=== PATIENT | male | born 1965 | race Caucasian/White ===

== ENCOUNTER 2021-12-20 16:13 | Inpatient (IN) | payer OTHER ==
[~2021-12-20] VITALS: Ht 175.3 cm; Wt 76.9 kg
[2021-12-20] MEDS ORDERED: EMPA10TA3 PO (16:51)
[2021-12-20] MEDS ORDERED: CALC500T37 PO (16:51)
[2021-12-20] MEDS ORDERED: ASPI-1 PO (16:51)
[2021-12-20] MEDS ORDERED: GLIP5TAB12 PO (16:51)
[2021-12-20] MEDS ORDERED: SACU1TAB PO (16:51)
[2021-12-20] MEDS ORDERED: OMEP20 PO (16:51)
[2021-12-20] MEDS ORDERED: METO50 PO (16:51)
[2021-12-20] MEDS ORDERED: CHLO10TA19 PO (16:51)
[2021-12-20] MEDS ORDERED: AMLO-257 PO (16:51)
[2021-12-20] MEDS ORDERED: ALLO-97 PO (16:51)
[2021-12-20] MEDS ORDERED: CLOP75TA60 PO (16:51)
[2021-12-20] MEDS ORDERED: ATOR40TA28 PO (16:51)
[2021-12-20] MEDS ORDERED: OMEG100015 PO (16:51)
[2021-12-20 17:23] LABS: BASOPHILS % (AUTO) 1.1 % (0.0-2.0); EOSINOPHILS % (AUTO) 3.3 % (1.0-6.0); HEMOGLOBIN 10.9 g/dL (13.5-17.5); LYMPHOCYTES # (AUTO) 2.3 K/uL (1.0-4.8); MEAN CORPUSCULAR HEMOGLOBIN 30.1 pg (26.0-34.0); MEAN CORPUSCULAR HGB CONC 33.9 G/dL (31.0-37.0); MEAN CORPUSCULAR VOLUME 89 fL (80-100); MONOCYTES # (AUTO) 0.7 K/uL (0.1-1.0); MONOCYTES % (AUTO) 9.9 % (2.0-9.0); NEUTROPHILS # (AUTO) 3.8 K/uL (1.8-7.7); NEUTROPHILS % (AUTO) 52.7 % (40.0-70.0); PLATELET COUNT (AUTO) 197 K/uL (150-450); RED BLOOD CELL COUNT(AUTO) 3.61 MIL/uL (4.50-5.90); RED CELL DISTRIBUTION WIDTH 14.1 % (11.5-14.5)
[2021-12-20 17:33] LABS: CALCIUM, TOTAL 7.8 mg/dL (8.8-10.5); CREATININE 5.7 mg/dL (0.60-1.30); POTASSIUM 5.7 mmol/L (3.5-5.1)
[2021-12-20 17:36] LABS: PROTHROMBIN TIME 10.3 SEC (9.4-11.6)
[2021-12-20 17:45] LABS: APPEARANCE,URINE CLEAR (CLEAR); BILIRUBIN,URINE NEGATIVE (NEGATIVE); GLUCOSE, URINE (UA) >=1000 mg/dL (NEGATIVE); KETONES,URINE NEGATIVE (NEGATIVE); LEUKOCYTE ESTERASE ,URINE NEGATIVE (NEGATIVE); NITRATE,URINE NEGATIVE (NEGATIVE); OCCULT BLOOD,URINE SMALL (NEGATIVE); PH,URINE 5.5 (5.0-8.0); PROTEIN,URINE 300-600,SEE CONFIRM mg/dL (NEGATIVE); UROBILINOGEN,URINE <=1.0 mg/dL (<=1.0)
[2021-12-20] MEDS ORDERED: SODIUM ZIRCONIUM CYCLOSILICATE 5 GM POWDER PACKET PO ONE (18:00)
[2021-12-20] MEDS ORDERED: CALCIUM GLUCONATE 1,000 MG in DEXTROSE 5%-WATER 50 ML IV ONE (18:00)
[2021-12-20 18:02] LABS: ALBUMIN 3.6 g/dL (3.4-5.0); BILIRUBIN,TOTAL 0.3 mg/dL (0.1-1.0); TOTAL PROTEIN, SERUM 7.8 g/dL (6.4-8.2)
[2021-12-20] MEDS ORDERED: DEXTROSE 50%-WATER 25 GM/50 ML SYRINGE IVP ONE (18:15)
[2021-12-20] MEDS ORDERED: INSULIN REGULAR, HUMAN 100 UNITS/ML IVP ONE (18:15)
[2021-12-20] MEDS ORDERED: FUROSEMIDE 40 MG/4 ML VIAL IVP ONE (18:15)
[2021-12-20 18:25] LABS: COVID AG,FIA SOURCE NASAL SWAB
[2021-12-20 18:37] LABS: BACTERIA,URINE None Seen /HPF (None Seen); RBC,URINE 0-2 /HPF (0-2); SULFOSALICYLIC ACID,URINE 2+ (Negative); WBC,URINE None Seen /HPF (0-5)
[2021-12-20 19:06] LABS: GLUCOMETER DEV NAME(LOC) ERT.5; GLUCOSE,POINT OF CARE 244 MG/DL (70-110)
[2021-12-20] MEDS ORDERED: ACETAMINOPHEN 325 MG TABLET PO PRN (20:00)
[2021-12-20] MEDS ORDERED: ONDANSETRON HCL 4 MG/2 ML VIAL IVP PRN (20:00)
[2021-12-20 22:45] LABS: CREATININE,URINE RANDOM 89.2 mg/dL (30.0-125.0)
[2021-12-20] MEDS ORDERED: DEXTROSE 50%-WATER 25 GM/50 ML SYRINGE IVP PRN (22:45)
[2021-12-20 23:26] LABS: CALCIUM, TOTAL 8.5 mg/dL (8.8-10.5); CREATININE 5.73 mg/dL (0.60-1.30); POTASSIUM 5.1 mmol/L (3.5-5.1)
[2021-12-20] MEDS: HEPARIN SODIUM,PORCINE 5,000 UNITS/ML VIAL SQ SCH (23:37)
[2021-12-21 02:52] VITALS: BP 108/74
[2021-12-21 09:00] VITALS: BP 135/79
[2021-12-21] MEDS ORDERED: OMEPRAZOLE 20 MG CAPSULE PO SCH (09:00)
[2021-12-21] MEDS: CALCIUM CARBONATE 500 MG CHEWABLE TABLET PO SCH ×3 (09:04→21:15)
[2021-12-21] MEDS: ALLOPURINOL 100 MG TABLET PO SCH (09:05)
[2021-12-21] MEDS: CLOPIDOGREL BISULFATE 75 MG TABLET PO SCH (09:05)
[2021-12-21] MEDS: AmLODIPine BESYLATE 5 MG TABLET PO SCH (09:05)
[2021-12-21] MEDS: METOPROLOL TARTRATE 50 MG TABLET PO SCH (09:05)
[2021-12-21] MEDS: ASPIRIN 325 MG TABLET PO SCH (09:05)
[2021-12-21] MEDS: ChlorproMAZINE HCL 10 MG TABLET PO SCH ×2 (09:06→21:15)
[2021-12-21] MEDS: ATORVASTATIN CALCIUM 40 MG TABLET PO SCH (09:06)
[2021-12-21] MEDS: HEPARIN SODIUM,PORCINE 5,000 UNITS/ML VIAL SQ SCH ×2 (09:06→16:24)
[2021-12-21] MEDS: PANTOPRAZOLE SODIUM 40 MG DR TABLET PO SCH (09:06)
[2021-12-21 11:32] LABS: GLUCOMETER DEV NAME(LOC) 5N.3; GLUCOSE,POINT OF CARE 198 MG/DL (70-110)
[2021-12-21] MEDS: INSULIN LISPRO 100 UNITS/ML SQ PRN ×3 (11:53→21:17)
[2021-12-21 12:30] VITALS: BP 134/70
[2021-12-21 13:22] LABS: AMPHET/METH SCREEN,URINE NEGATIVE (NEGATIVE); BARBITURATE SCREEN, URINE NEGATIVE (NEGATIVE); BENZODIAZEPINES SCREEN,URINE NEGATIVE (NEGATIVE); CANNABINOID SCREEN,URINE NEGATIVE (NEGATIVE); COCAINE SCREEN,URINE NEGATIVE (NEGATIVE); METHADONE SCREEN, URINE NEGATIVE (NEGATIVE); OPIATE SCREEN,URINE NEGATIVE (NEGATIVE); PHENCYCLIDINE SCREEN,URINE NEGATIVE (NEGATIVE); PROTEIN,URINE RANDOM 158 mg/dL (0-11.9)
[2021-12-21 16:20] VITALS: BP 129/70
[2021-12-21] MEDS ORDERED: EPOETIN ALFA 10,000 UNITS/ML VIAL SQ SCH (16:40)
[2021-12-21] MEDS: FERROUS SULFATE 325 MG EC TABLET PO SCH (18:01)
[2021-12-21 19:30] VITALS: BP 127/79
[2021-12-21] MEDS ORDERED: INSULIN GLARGINE,HUM.REC.ANLOG 100 UNITS/ML SQ SCH (21:00)
[2021-12-21] MEDS: SODIUM BICARBONATE 650 MG TABLET PO SCH (21:15)
[2021-12-21 23:45] VITALS: BP 123/76
[2021-12-22] MEDS: HEPARIN SODIUM,PORCINE 5,000 UNITS/ML VIAL SQ SCH ×2 (00:42→09:22)
[2021-12-22 04:20] VITALS: BP 133/80
[2021-12-22] MEDS: INSULIN LISPRO 100 UNITS/ML SQ PRN ×2 (05:40→12:00)
[2021-12-22 06:11] LABS: GLUCOMETER DEV NAME(LOC) 5N.1C; GLUCOSE,POINT OF CARE 208 MG/DL (70-110)
[2021-12-22 06:16] LABS: GLUCOMETER DEV NAME(LOC) 5N.1C; GLUCOSE,POINT OF CARE 151 MG/DL (70-110)
[2021-12-22 07:06] LABS: GLUCOMETER DEV NAME(LOC) 5N.3; GLUCOSE,POINT OF CARE 162 MG/DL (70-110)
[2021-12-22 07:06] LABS: GLUCOMETER DEV NAME(LOC) 5N.3; GLUCOSE,POINT OF CARE 229 MG/DL (70-110)
[2021-12-22 07:48] LABS: BASOPHILS % (AUTO) 0.7 % (0.0-2.0); EOSINOPHILS % (AUTO) 2.9 % (1.0-6.0); HEMATOCRIT 32.6 % (41-53); HEMOGLOBIN 10.9 g/dL (13.5-17.5); LYMPHOCYTES % (AUTO) 31.8 % (22.0-44.0); MEAN CORPUSCULAR HEMOGLOBIN 29.7 pg (26.0-34.0); MEAN CORPUSCULAR HGB CONC 33.5 G/dL (31.0-37.0); MEAN CORPUSCULAR VOLUME 89 fL (80-100); MONOCYTES # (AUTO) 0.6 K/uL (0.1-1.0); MONOCYTES % (AUTO) 9.8 % (2.0-9.0); NEUTROPHILS # (AUTO) 3.5 K/uL (1.8-7.7); NEUTROPHILS % (AUTO) 54.8 % (40.0-70.0); PLATELET COUNT (AUTO) 173 K/uL (150-450); RED BLOOD CELL COUNT(AUTO) 3.69 MIL/uL (4.50-5.90); RED CELL DISTRIBUTION WIDTH 14.2 % (11.5-14.5)
[2021-12-22 07:58] LABS: ALBUMIN 3.3 g/dL (3.4-5.0); BILIRUBIN,TOTAL 0.2 mg/dL (0.1-1.0); CALCIUM, TOTAL 8.2 mg/dL (8.8-10.5); CREATININE 5.57 mg/dL (0.60-1.30); PHOSPHORUS 5.8 mg/dL (2.5-4.9); POTASSIUM 4.8 mmol/L (3.5-5.1); TOTAL PROTEIN, SERUM 7.2 g/dL (6.4-8.2)
[2021-12-22 08:00] VITALS: BP 115/86
[2021-12-22] MEDS ORDERED: SODIUM ZIRCONIUM CYCLOSILICATE 5 GM POWDER PACKET PO SCH (09:00)
[2021-12-22] MEDS: ChlorproMAZINE HCL 10 MG TABLET PO SCH (09:21)
[2021-12-22] MEDS: METOPROLOL TARTRATE 50 MG TABLET PO SCH (09:21)
[2021-12-22] MEDS: ASPIRIN 325 MG TABLET PO SCH (09:21)
[2021-12-22] MEDS: ATORVASTATIN CALCIUM 40 MG TABLET PO SCH (09:21)
[2021-12-22] MEDS: CLOPIDOGREL BISULFATE 75 MG TABLET PO SCH (09:21)
[2021-12-22] MEDS: FERROUS SULFATE 325 MG EC TABLET PO SCH (09:21)
[2021-12-22] MEDS: CALCIUM CARBONATE 500 MG CHEWABLE TABLET PO SCH (09:21)
[2021-12-22] MEDS: AmLODIPine BESYLATE 5 MG TABLET PO SCH (09:22)
[2021-12-22] MEDS: PANTOPRAZOLE SODIUM 40 MG DR TABLET PO SCH (09:22)
[2021-12-22] MEDS: SODIUM BICARBONATE 650 MG TABLET PO SCH (09:22)
[2021-12-22] MEDS: ALLOPURINOL 100 MG TABLET PO SCH (09:23)
[2021-12-22 10:56] VITALS: BP 122/75
[2021-12-22] MEDS ORDERED: CALCIUM ACETATE 667 MG CAPSULE PO SCH (12:00)
[2021-12-22] MEDS ORDERED: SODIUM BICARBONATE 650 MG TABLET PO SCH (13:00)
[2021-12-22] MEDS ORDERED: PHOSLOC PO (15:09)
[2021-12-22] MEDS ORDERED: EPOE10I SQ (15:11)
[2021-12-22] MEDS ORDERED: FERR-82 PO (15:11)
[2021-12-22] MEDS ORDERED: SODI650T33 PO (15:12)
[2021-12-22 20:41] LABS: GLUCOMETER DEV NAME(LOC) 5N.3; GLUCOSE,POINT OF CARE 361 MG/DL (70-110)
[2021-12-25 06:06] LABS: ALPHA-1 (IFE & PEP) 0.2 g/dL (0.0-0.4); BETA (IFE & ELP) 0.9 g/dL (0.7-1.3); GAMMA GLOBULINS (IFE & ELP) 1.5 g/dL (0.4-1.8); IGM (IMMUNOFIXATION) 113 mg/dL (20-172)
[2021-12-25 07:07] LABS: ALBUMIN URINE (ELP) 57.7 %
== END 2021-12-22 16:50 | DRG 683 ==
LOC: EMS 16:13 → 5S 12-21 02:42
PROVIDERS: ADMIT Internal Medicine; ATTEND Internal Medicine
DX: N17.9 Acute kidney failure, unspecified (principal); E87.2 Acidosis; I12.0 Hypertensive chronic kidney disease with stage 5 chronic kidney disease or end stage renal disease; E87.5 Hyperkalemia; N18.5 Chronic kidney disease, stage 5; E11.22 Type 2 diabetes mellitus with diabetic chronic kidney disease; I25.10 Atherosclerotic heart disease of native coronary artery without angina pectoris; D63.1 Anemia in chronic kidney disease; E78.00 Pure hypercholesterolemia, unspecified; E66.9 Obesity, unspecified; Z20.822 Contact with and (suspected) exposure to COVID-19; E83.39 Other disorders of phosphorus metabolism; E11.65 Type 2 diabetes mellitus with hyperglycemia; I25.2 Old myocardial infarction; Z82.49 Family history of ischemic heart disease and other diseases of the circulatory system; Z83.3 Family history of diabetes mellitus; Z84.1 Family history of disorders of kidney and ureter; Z87.891 Personal history of nicotine dependence; Z95.5 Presence of coronary angioplasty implant and graft; Z68.25 Body mass index [BMI] 25.0-25.9, adult; Z79.899 Other long term (current) drug therapy; Z79.82 Long term (current) use of aspirin
CPT/HCPCS: 71045; 76770; 80048; 80053; 80307; 81001; 81002; 82043; 82570; 82784; 82962; 83880; 84100; 84155; 84156; 84165; 84166; 84484; 84540; 85025; 85610; 85730; 86334; 93005; 99285; J0610; J0885; J1644; J1815; J1940; J7060; Q9967; 36415-L1; 36415-TC